=== PATIENT | female | born 1990 | race African-American/Black ===

== ENCOUNTER 2017-10-02 11:15 | Outpatient (CLI) | payer BC, MEDICAID ==
[2017-10-02 12:00] LABS: APPEARANCE,URINE SLIGHTLY-CLOUDY; BILIRUBIN,URINE NEGATIVE (NEGATIVE); GLUCOSE, URINE >=500 mg/dL (NEGATIVE); KETONES,URINE 80 mg/dL (NEGATIVE); LEUKOCYTE ESTERASE,URINE MODERATE (NEGATIVE); NITRITE,URINE NEGATIVE (NEGATIVE); PROTEIN,URINE NEGATIVE (NEGATIVE); URINE SPECIFIC GRAVITY 1.041; UROBILINOGEN,URINE NEGATIVE mg/dL (<2.0)
[2017-10-02 12:27] LABS: URINE BARBITURATES SCREEN NEGATIVE; URINE METHADONE SCREEN NEGATIVE; URINE OPIATES LOW NEGATIVE; URINE PHENCYCLIDINE SCREEN NEGATIVE
== END 2017-10-02 13:01 | disposition home or self-care (01) ==
LOC: LC 11:15
PROVIDERS: ATTEND Obstetrics & Gynecology
PROC: 4A1HXCZ Monitoring of Products of Conception, Cardiac Rate, External Approach (ICD-10-PCS; principal; 2017-10-02)
DX: O46.92 Antepartum hemorrhage, unspecified, second trimester (principal); O34.211 Maternal care for low transverse scar from previous cesarean delivery; Z3A.00 Weeks of gestation of pregnancy not specified
CPT/HCPCS: 80307; 81001; 87086

== ENCOUNTER 2017-10-27 09:49 | Emergency (ER) | payer BC, MEDICAID ==
[2017-10-27] MEDS ORDERED: NORMAL SALINE 1000 ML 1,000 ML IV ONE ×2 (09:59→11:40)
--- NOTE | 2017-10-27 10:01 | ER Document Report ---
ED Medical Screen (RME) - General Chief Complaint: High Blood Sugar Stated Complaint: BLOOD SUGAR CONCERNS Time Seen by Provider: 10/27/17 09:59 Notes: Patient is sent from the [facility] for elevated blood sugar. She states she has been weak lightheaded and dizzy. At clinic her blood sugar was 328. She states that she has not been treated for elevated glucose during this . This was her first elevated glucose reading. She states she is approximately 32 weeks gestation. TRAVEL OUTSIDE OF THE [place] IN LAST 30 DAYS: No - Related Data Allergies/Adverse Reactions: No Known Allergies Allergy (Verified 10/02/17 11:37) Past Medical History - Social History Chew tobacco use (# tins/day): No Frequency of alcohol use: None Drug Abuse: None Renal/ Medical History: Denies: Hx Peritoneal Dialysis Physical Exam - Vital signs Vitals: Temp Pulse Resp BP Pulse Ox 97.8 F 104 H 20 133/69 H 98 10/27/17 09:53 10/27/17 09:53 10/27/17 09:53 10/27/17 09:53 10/27/17 09:53 Course - Vital Signs Vital signs: Temp Pulse Resp BP Pulse Ox 97.8 F 104 H 20 133/69 H 98 10/27/17 09:53 10/27/17 09:53 10/27/17 09:53 10/27/17 09:53 10/27/17 09:53
[2017-10-27 10:45] LABS: ABSOLUTE BASOPHILS # (AUTO) 0.1 10^3/uL (0.0-0.2); ABSOLUTE LYMPHOCYTES (AUTO) 2.1 10^3/uL (0.5-4.7); ABSOLUTE MONOCYTES (AUTO) 0.7 10^3/uL (0.1-1.4); ABSOLUTE NEUT (AUTO) 7.8 10^3/uL (1.7-8.2); BASOPHILS % (AUTO) 0.6 % (0-2); EOSINOPHILS % (AUTO) 0.3 % (0-6); HEMATOCRIT 43.8 % (36.0-47.0); HEMOGLOBIN 14.4 g/dL (12.0-15.5); LYMPHOCYTES % (AUTO) 19.1 % (13-45); MEAN CORPUSCULAR HEMOGLOBIN 31.5 pg (27.0-33.4); MEAN CORPUSCULAR HGB CONC 32.8 g/dL (32.0-36.0); MEAN CORPUSCULAR VOLUME 96 fl (80-97); MONOCYTES % (AUTO) 6.9 % (3-13); PLATELET COUNT 287 10^3/uL (150-450); RED BLOOD COUNT 4.55 10^6/uL (3.72-5.28); RED CELL DISTRIBUTION WIDTH 14.7 % (11.5-14.0); SEGMENTED NEUTROPHILS % (AUTO) 73.1 % (42-78); TOTAL CELLS COUNTED % (AUTO) 100 %; WHITE BLOOD COUNT 10.7 10^3/uL (4.0-10.5)
[2017-10-27 10:47] LABS: APPEARANCE,URINE SLIGHTLY-CLOUDY; BILIRUBIN,URINE NEGATIVE (NEGATIVE); COLOR,URINE YELLOW; GLUCOSE, URINE >=500 mg/dL (NEGATIVE); KETONES,URINE 80 mg/dL (NEGATIVE); LEUKOCYTE ESTERASE,URINE NEGATIVE (NEGATIVE); NITRITE,URINE NEGATIVE (NEGATIVE); PROTEIN,URINE 100 mg/dL (NEGATIVE); URINE SPECIFIC GRAVITY 1.031; UROBILINOGEN,URINE NEGATIVE mg/dL (<2.0)
--- NOTE | 2017-10-27 12:07 | ER Document Report ---
ED Blood Sugar Problem - General Chief Complaint: High Blood Sugar Stated Complaint: BLOOD SUGAR CONCERNS Time Seen by Provider: 10/27/17 09:59 Mode of Arrival: Ambulatory Information source: Patient Notes: Patient is currently 32 weeks and reports that she was seen by her PROJECT MANAGEMENT this afternoon and told she had an elevated blood sugar. Patient states that she does occasionally feel lightheaded and dizzy. Patient states she has had some cold symptoms for the past week and a half. Patient denies any cough or fever. Patient denies any vaginal bleeding or discharge. Patient does report positive movement. Patient denies any urinary complaints. Patient states she has not had any consistent care with this due to lack of insurance and multiple moves recently. Patient is only previously seen the PROJECT MANAGEMENT doctor today and on one prior occasion. TRAVEL OUTSIDE OF THE [place] IN LAST 30 DAYS: No - HPI Onset: Just prior to arrival Onset/Duration: Gradual Quality of pain: No pain Pain Level: Denies Associated symptoms: Dizziness, Increased thirst, Frequent urination. denies: Loss of consciousness, Vomiting Similar symptoms previously: No Recently seen / treated by doctor: Yes - Related Data Allergies/Adverse Reactions: No Known Allergies Allergy (Verified 10/02/17 11:37) Past Medical History - General Information source: Patient Last Menstrual Period: 32 weeks - Social History Smoking Status: Never Smoker Chew tobacco use (# tins/day): No Frequency of alcohol use: None Drug Abuse: None Occupation: [employer] Lives with: Family Family History: Reviewed & Not Pertinent Patient has suicidal ideation: No Patient has homicidal ideation: No - Medical History Medical History: Negative Renal/ Medical History: Denies: Hx Peritoneal Dialysis Past Surgical History: Reports: Hx Section Review of Systems - Review of Systems Constitutional: Recent illness - cold symptoms. denies: Fever EENT: Nose congestion Cardiovascular: Dizziness, Lightheaded. denies: Chest pain Respiratory: No symptoms reported. denies: Cough, Short of breath Gastrointestinal: No symptoms reported. denies: Abdominal pain, Nausea, Vomiting Genitourinary: Frequency Female Genitourinary: No symptoms reported, Musculoskeletal: No symptoms reported Skin: No symptoms reported Hematologic/Lymphatic: No symptoms reported Neurological/Psychological: No symptoms reported. denies: Headaches Physical Exam - Vital signs Vitals: Temp Pulse Resp BP Pulse Ox 97.8 F 104 H 20 133/69 H 98 01/03/18 09:53 10/27/17 09:53 10/27/17 09:53 10/27/17 09:53 10/27/17 09:53 - General General appearance: Appears well, Alert In distress: None - HEENT Head: Normocephalic, Atraumatic Eyes: Normal Conjunctiva: Normal Nasal: Normal Mouth/Lips: Normal Mucous membranes: Dry Pharynx: Normal Neck: Normal, Supple. No: Lymphadenopathy - Respiratory Respiratory status: No respiratory distress Chest status: Nontender Breath sounds: Normal. No: Rales, Rhonchi, Stridor, Wheezing Chest palpation: Normal - Cardiovascular Rhythm: Regular Heart sounds: S1 appreciated, S2 appreciated Murmur: No - Abdominal Inspection: Gravid female Distension: No distension Bowel sounds: Normal Tenderness: Nontender Organomegaly: No organomegaly - Back Back: Normal, Nontender. No: CVA tenderness - Extremities General upper extremity: Normal inspection, Normal ROM General lower extremity: Normal inspection, Normal ROM. No: Edema - Neurological Neuro grossly intact: Yes Cognition: Normal [place] Coma Scale Eye Opening: Spontaneous [place] Coma Scale Verbal: Oriented [place] Coma Scale Motor: Obeys Commands [place] Coma Scale Total: 15 - Psychological Associated symptoms: Normal affect, Normal mood - Skin Skin Temperature: Warm Skin Moisture: Dry Skin Color: Normal Course - Re-evaluation Re-evalutation: 10/27/17 13:04 Patient reports that she is feeling much better after IV fluids. Consulted with Dr. Black regarding patient presentation, reviewed patient's diagnostic test results. Advises consultation with PROJECT MANAGEMENT provider. Consulted with Dr. Coyle who states that patient was only sent here for fluids and insulin as I do not have insulin in the office. Dr. Coyle states that patient had a prescription for glyburide 5 mg twice a day E scribed to the pharmacy already and that she should just take this to manage her diabetes and to follow-up in the office on Wednesday as planned. - Vital Signs Vital signs: Temp Pulse Resp BP Pulse Ox 97.8 F 94 17 134/81 H 99 10/27/17 09:53 10/27/17 13:23 10/27/17 13:23 10/27/17 13:23 10/27/17 13:23 - Laboratory Result Diagrams: 10/27/17 10:30 10/27/17 11:52 Laboratory results interpreted by me: 10/27/17 10/27/17 10/27/17 09:55 10:30 10:30 WBC 10.7 H RDW 14.7 H Sodium Potassium Chloride Carbon Dioxide Glucose POC Glucose 327 H Total Protein Albumin Urine Protein 100 H Urine Glucose (UA) >=500 H Urine Ketones 80 H 10/27/17 11:52 WBC RDW Sodium 134.4 L Potassium 5.2 H Chloride 108 H Carbon Dioxide 12 L Glucose 282 H POC Glucose Total Protein 6.2 L Albumin 3.3 L Urine Protein Urine Glucose (UA) Urine Ketones 10/27/17 13:05 Labs- Entire Visit 10/27/17 10/27/17 10/27/17 09:55 10:30 10:30 WBC 10.7 H RBC 4.55 Hgb 14.4 Hct 43.8 MCV 96 MCH 31.5 MCHC 32.8 RDW 14.7 H Plt Count 287 Seg Neutrophils % 73.1 Lymphocytes % 19.1 Monocytes % 6.9 Eosinophils % 0.3 Basophils % 0.6 Absolute Neutrophils 7.8 Absolute Lymphocytes 2.1 Absolute Monocytes 0.7 Absolute Eosinophils 0.0 Absolute Basophils 0.1 Sodium Cancelled Potassium Cancelled Chloride Cancelled Carbon Dioxide Cancelled Anion Gap Cancelled BUN Cancelled Creatinine Cancelled Est GFR ( Amer) Cancelled Est GFR (Non-Af Amer) Cancelled Glucose Cancelled POC Glucose 327 H Calcium Cancelled Total Bilirubin Cancelled Direct Bilirubin Cancelled Neonat Total Bilirubin Cancelled Neonat Direct Bilirubin Cancelled Neonat Indirect Bili Cancelled AST Cancelled ALT Cancelled Alkaline Phosphatase Cancelled Total Protein Cancelled Albumin Cancelled Urine Color Urine Appearance Urine pH Ur Specific [place] Urine Protein Urine Glucose (UA) Urine Ketones Urine Blood Urine Nitrite Urine Bilirubin Urine Urobilinogen Ur Leukocyte Esterase Urine WBC (Auto) Urine RBC (Auto) U Hyaline Cast (Auto) Urine Bacteria (Auto) Squamous Epi Cells Auto Urine Mucus (Auto) Urine Ascorbic Acid 10/27/17 10/27/17 10:30 11:52 WBC RBC Hgb Hct MCV MCH MCHC RDW Plt Count Seg Neutrophils % Lymphocytes % Monocytes % Eosinophils % Basophils % Absolute Neutrophils Absolute Lymphocytes Absolute Monocytes Absolute Eosinophils Absolute Basophils Sodium 134.4 L Potassium 5.2 H Chloride 108 H Carbon Dioxide 12 L Anion Gap 14 BUN 12 Creatinine 0.73 Est GFR ( Amer) > 60 Est GFR (Non-Af Amer) > 60 Glucose 282 H POC Glucose Calcium 9.1 Total Bilirubin 0.6 Direct Bilirubin 0.3 Neonat Total Bilirubin Not Reportable Neonat Direct Bilirubin Not Reportable Neonat Indirect Bili Not Reportable AST 15 ALT 27 Alkaline Phosphatase 118 Total Protein 6.2 L Albumin 3.3 L Urine Color YELLOW Urine Appearance SLIGHTLY-CLOUDY Urine pH 5.0 Ur Specific [place] 1.031 Urine Protein 100 H Urine Glucose (UA) >=500 H Urine Ketones 80 H Urine Blood NEGATIVE Urine Nitrite NEGATIVE Urine Bilirubin NEGATIVE Urine Urobilinogen NEGATIVE Ur Leukocyte Esterase NEGATIVE Urine WBC (Auto) 5 Urine RBC (Auto) 1 U Hyaline Cast (Auto) 1 Urine Bacteria (Auto) TRACE Squamous Epi Cells Auto 2 Urine Mucus (Auto) RARE Urine Ascorbic Acid NEGATIVE Discharge - Discharge Clinical Impression: Diabetes Qualifiers: Diabetes mellitus type: type 2 Diabetes mellitus complication status: with hyperglycemia Diabetes mellitus rodent exterminator insulin use: without shelter use Qualified Code(s): E11.65 - Type 2 diabetes mellitus with hyperglycemia Condition: Stable Disposition: HOME, SELF-CARE Instructions: Diabetes ([facility]), Intravenous (IV) Fluids ([facility]) Additional Instructions: Return immediately for any new or worsening symptoms Followup with your primary care provider, call tomorrow to make a followup appointment Get the oral diabetic medication filled as prescribed and take as directed. Your potassium was minimally elevated today, your primary doctor can recheck this in the office when you see them. Check your blood sugar daily. It is important that you maintain a diabetic diet. Review the handout provided by your commercial cleaner provider. Forms: Return to Work Referrals: ROMAN COLE MD [Primary Care Provider] - 10/29/17
[2017-10-27 12:25] LABS: ALANINE AMINOTRANSFERASE 27 U/L (9-52); ALBUMIN 3.3 g/dL (3.5-5.0); ALKALINE PHOSPHATASE 118 U/L (38-126); ANION GAP 14 (5-19); ASPARTATE AMINO TRANSFERASE 15 U/L (14-36); BILIRUBIN,DIRECT 0.3 mg/dL (0.0-0.4); BILIRUBIN,TOTAL 0.6 mg/dL (0.2-1.3); BLOOD UREA NITROGEN 12 mg/dL (7-20); CALCIUM 9.1 mg/dL (8.4-10.2); CARBON DIOXIDE 12 mmol/L (22-30); CHLORIDE 108 mmol/L (98-107); GLUCOSE 282 mg/dL (75-110); POTASSIUM 5.2 mmol/L (3.6-5.0); SODIUM 134.4 mmol/L (137-145); TOTAL PROTEIN 6.2 g/dL (6.3-8.2)
[2017-10-27] MEDS ORDERED: INSULIN REG, HUMAN 100 UNIT/ML 3 ML VIAL (PYX) SUBCUT ONE (12:55)
[2017-10-27 13:28] VITALS: BP 134/81
== END 2017-10-27 13:27 | disposition home or self-care (01) ==
LOC: ER 09:49
DX: O24.913 Unspecified diabetes mellitus in pregnancy, third trimester (principal); R42 Dizziness and giddiness; Z3A.32 32 weeks gestation of pregnancy; Z79.4 Long term (current) use of insulin
CPT/HCPCS: 99285; 96360; 96361; 36415; 82962; 85025; 80053; 81001; J1815; J7030

== ENCOUNTER 2017-11-02 11:47 | Inpatient (IN) | payer BC, MEDICAID ==
[2017-11-02 12:23] LABS: APPEARANCE,URINE CLEAR; BILIRUBIN,URINE NEGATIVE (NEGATIVE); COLOR,URINE YELLOW; GLUCOSE, URINE >=500 mg/dL (NEGATIVE); KETONES,URINE 80 mg/dL (NEGATIVE); LEUKOCYTE ESTERASE,URINE NEGATIVE (NEGATIVE); NITRITE,URINE NEGATIVE (NEGATIVE); PROTEIN,URINE 30 mg/dL (NEGATIVE); URINE SPECIFIC GRAVITY 1.017; UROBILINOGEN,URINE NEGATIVE mg/dL (<2.0)
[2017-11-02] MEDS ORDERED: INSULIN REG, HUMAN 100 UNIT/ML 3 ML VIAL (PYX) SUBCUT ONE (12:34)
[2017-11-02] MEDS ORDERED: INSULIN REG, HUMAN 100 UNIT/ML 3 ML VIAL (PYX) ONE (12:41)
[2017-11-02 12:43] LABS: URINE AMPHETAMINES SCREEN NEGATIVE; URINE BARBITURATES SCREEN NEGATIVE; URINE BENZODIAZEPINES SCREEN NEGATIVE; URINE COCAINE SCREEN NEGATIVE; URINE MARIJUANA (THC) SCREEN NEGATIVE; URINE METHADONE SCREEN NEGATIVE; URINE PHENCYCLIDINE SCREEN NEGATIVE
[2017-11-02 13:26] LABS: ABSOLUTE BASOPHILS # (AUTO) 0.1 10^3/uL (0.0-0.2); ABSOLUTE LYMPHOCYTES (AUTO) 1.5 10^3/uL (0.5-4.7); ABSOLUTE MONOCYTES (AUTO) 0.9 10^3/uL (0.1-1.4); ABSOLUTE NEUT (AUTO) 6.2 10^3/uL (1.7-8.2); BASOPHILS % (AUTO) 0.6 % (0-2); EOSINOPHILS % (AUTO) 0.4 % (0-6); HEMATOCRIT 37.6 % (36.0-47.0); HEMOGLOBIN 12.6 g/dL (12.0-15.5); LYMPHOCYTES % (AUTO) 17.7 % (13-45); MEAN CORPUSCULAR HEMOGLOBIN 31.6 pg (27.0-33.4); MEAN CORPUSCULAR HGB CONC 33.4 g/dL (32.0-36.0); MEAN CORPUSCULAR VOLUME 95 fl (80-97); MONOCYTES % (AUTO) 10.8 % (3-13); PLATELET COUNT 212 10^3/uL (150-450); RED BLOOD COUNT 3.97 10^6/uL (3.72-5.28); RED CELL DISTRIBUTION WIDTH 14.7 % (11.5-14.0); SEGMENTED NEUTROPHILS % (AUTO) 70.5 % (42-78); TOTAL CELLS COUNTED % (AUTO) 100 %; WHITE BLOOD COUNT 8.7 10^3/uL (4.0-10.5)
[2017-11-02 13:47] LABS: ALANINE AMINOTRANSFERASE 60 U/L (9-52); ALKALINE PHOSPHATASE 108 U/L (38-126); ANION GAP 14 (5-19); ASPARTATE AMINO TRANSFERASE 27 U/L (14-36); BILIRUBIN,DIRECT 0.3 mg/dL (0.0-0.4); BILIRUBIN,TOTAL 0.4 mg/dL (0.2-1.3); BLOOD UREA NITROGEN 12 mg/dL (7-20); CALCIUM 9.2 mg/dL (8.4-10.2); CARBON DIOXIDE 12 mmol/L (22-30); CHLORIDE 104 mmol/L (98-107); GLUCOSE 222 mg/dL (75-110); POTASSIUM 3.9 mmol/L (3.6-5.0); SODIUM 130.4 mmol/L (137-145); TOTAL PROTEIN 5.7 g/dL (6.3-8.2)
[2017-11-02] MEDS ORDERED: INSULIN REG, HUMAN 100 UNIT/ML 3 ML VIAL (PYX) SUBCUT SCH (16:00)
[2017-11-02] MEDS ORDERED: INSULIN NPH (ISOPHANE), HUMAN 100 UNIT/ML 3 ML SUBCUT SCH (16:00)
[2017-11-03] MEDS ORDERED: INSULIN NPH (ISOPHANE), HUMAN 100 UNIT/ML 3 ML SUBCUT SCH ×3 (08:00→22:00)
[2017-11-03] MEDS ORDERED: INSULIN REG, HUMAN 100 UNIT/ML 3 ML VIAL (PYX) SUBCUT SCH ×5 (08:00→17:00)
[2017-11-03] MEDS: PRENATAL VITAMIN W DHA CAPSULE PO SCH (09:31)
[2017-11-03] MEDS ORDERED: DEXTROSE 50%-WATER SYRINGE 25 GM/50 ML DOSE IV PRN (12:58)
[2017-11-03] MEDS ORDERED: DEXTROSE 40% GEL 15 GM TUBE PO PRN (12:58)
[2017-11-03] MEDS ORDERED: DEXTROSE 40% GEL 15 GM TUBE X 2 PO PRN (12:58)
[2017-11-03] MEDS ORDERED: GLUCAGON,HUMAN RECOMB 1 MG INJ IM PRN (12:58)
[2017-11-03] MEDS ORDERED: DEXTROSE 50%-WATER SYRINGE 12.5 GM/25 ML DOSE IV PRN (12:58)
[2017-11-03] MEDS ORDERED: INSULIN REG, HUMAN 100 UNIT/ML 3 ML VIAL (PYX) SUBCUT ONE (14:30)
[2017-11-03] MEDS ORDERED: INSULIN REG, HUMAN 100 UNIT/ML 3 ML VIAL (PYX) SUBCUT PRN (16:00)
[2017-11-03] MEDS: INSULIN REG, HUMAN 100 UNIT/ML 3 ML VIAL (PYX) SUBCUT PRN ×2 (16:16→22:00)
--- NOTE | 2017-11-03 17:02 | PDOC PROGRESS REPORT ---
Subjective Progress Note for:: 11/03/17 Subjective:: Pt. reports to have been feeling dizzy on and off when first diagnosed. Doing well today. Reports +FM, denies LOF/bleeding/ctx. Has multiple questions about diabetic diet and plan of care. Reports she had stopped eating carbs altogether since diagnosis and is frustrated that no matter what she is doing or what medications she takes or is given her glucose is still high. Reason For Visit: DIABETES IN Physical Exam - Physical Exam Vital Signs: Temp Pulse Resp BP Pulse Ox 97.5 F 90 18 120/74 100 11/03/17 07:51 11/03/17 07:51 11/03/17 07:51 11/03/17 07:51 11/03/17 07:51 Intake & Output 11/02/17 11/03/17 11/04/17 06:59 06:59 06:59 Intake Total 400 480 Balance 400 480 Weight 124.2 kg General appearance: PRESENT: no acute distress Psychiatric exam: PRESENT: appropriate affect Additional comments: VSS, afebrile, gravid abdomen. Result Laboratory Results: 11/02/17 13:17 11/02/17 13:17 Impressions: hgb A1c 8.6 Assessment & Plan - Diagnosis (1) Gestational diabetes mellitus (GDM) affecting second Is this a current diagnosis for this admission?: Yes Plan: had long discussion with patient and reviewed GDM diet and plan of care. Pt. asked questions and verbalized understanding. Will stay inpatient until glucose well controlled on insulin. Dr. Coyle in unit and managing glucose.
[2017-11-03] MEDS: MICONAZOLE NITRATE 2% VAGINAL CREAM 45 GM TUBE PV SCH (22:01)
[2017-11-04] MEDS ORDERED: INSULIN NPH (ISOPHANE), HUMAN 100 UNIT/ML 3 ML SUBCUT SCH ×2 (08:00→16:00)
[2017-11-04] MEDS ORDERED: DEXTROSE 50%-WATER 25 GM/50 ML DISP.SYRIN IV PRN ×6 (08:46→08:51)
[2017-11-04] MEDS ORDERED: GLUCAGON,HUMAN RECOMB 1 MG INJ IM PRN ×3 (08:46→08:51)
[2017-11-04] MEDS ORDERED: DEXTROSE 40% GEL 15 GM TUBE PO PRN ×6 (08:46→08:51)
[2017-11-04] MEDS ORDERED: INSULIN REG, HUMAN 100 UNIT/ML 3 ML VIAL (PYX) ONE (09:10)
[2017-11-04] MEDS ORDERED: INSULIN NPH (ISOPHANE), HUMAN 100 UNIT/ML 3 ML ONE (09:11)
[2017-11-04] MEDS ORDERED: INSULIN REG, HUMAN 100 UNIT/ML 3 ML VIAL (PYX) SUBCUT ONE (10:00)
[2017-11-04] MEDS ORDERED: INSULIN NPH (ISOPHANE), HUMAN 100 UNIT/ML 3 ML SUBCUT ONE (10:00)
--- NOTE | 2017-11-04 11:10 | PDOC PROGRESS REPORT ---
Subjective Progress Note for:: 11/04/17 Subjective:: pt alert and stable without complaints Reason For Visit: DIABETES IN Physical Exam - Physical Exam Vital Signs: Temp Pulse Resp BP Pulse Ox 97.5 F 91 16 107/54 L 100 11/04/17 08:10 11/04/17 08:10 11/04/17 08:10 11/04/17 08:10 11/04/17 08:10 Intake & Output 11/03/17 11/04/17 11/05/17 06:59 06:59 06:59 Intake Total 400 480 Balance 400 480 Weight 124.2 kg General appearance: PRESENT: no acute distress Neurological exam: PRESENT: alert Result Laboratory Results: 11/02/17 13:17 11/02/17 13:17 Assessment & Plan - Diagnosis (1) Gestational diabetes mellitus (GDM) affecting second Is this a current diagnosis for this admission?: Yes - Time Time Spent with patient: Less than 15 minutes Anticipated discharge: Home Within: within 48 hours - Plan Summary Plan Summary: continue to adjust insulin and plan d/c when goals met
[2017-11-04] MEDS: PRENATAL VITAMIN W DHA CAPSULE PO SCH (11:13)
[2017-11-04] MEDS: INSULIN REG, HUMAN 100 UNIT/ML 3 ML VIAL (PYX) SUBCUT PRN ×3 (13:30→20:06)
[2017-11-04] MEDS ORDERED: INSULIN REG, HUMAN 100 UNIT/ML 3 ML VIAL (PYX) SUBCUT SCH (16:00)
[2017-11-04] MEDS: MICONAZOLE NITRATE 2% VAGINAL CREAM 45 GM TUBE PV SCH (22:33)
[2017-11-05] MEDS ORDERED: INSULIN NPH (ISOPHANE), HUMAN 100 UNIT/ML 3 ML SUBCUT SCH (08:00)
[2017-11-05] MEDS ORDERED: INSULIN REG, HUMAN 100 UNIT/ML 3 ML VIAL (PYX) SUBCUT SCH (08:00)
[2017-11-05] MEDS: PRENATAL VITAMIN W DHA CAPSULE PO SCH (10:59)
--- NOTE | 2017-11-05 11:48 | Progress Note ---
Provider Note Provider Note: S:Pt states readiness for d/c. Has been administering own insulin and is able to verbalize s/sx hyper/hypoglycemia and when to seek care, states active baby denies vb, or lof, denies ctx. O: VSS, afebrile See flow sheet for blood glucose levels NST: Cat 1 A: IUP at 33w New dx GDM on insulin with improved glucose control P: c/w dr. prince Pt to be d/c home today with in office f/u for nst/[place] on wed or Insulin: Regular B-15 units, Dinner 8 units NPH: B-25 units, Dinner 12 units PTL prec. fm counts
[2017-11-05] MEDS: INSULIN REG, HUMAN 100 UNIT/ML 3 ML VIAL (PYX) SUBCUT PRN (12:10)
[2017-11-05 13:08] VITALS: BP 127/60
--- NOTE | 2017-11-05 13:29 | PDOC DISCHARGE SUMMARY ---
General - Admit/Disc Date/PCP Admission Date/Primary Care Provider: 11/02/17 14:40 ROMAN COLE MD Discharge Date: 11/05/17 - Discharge Diagnosis (1) Gestational diabetes mellitus (GDM) affecting second Is this a current diagnosis for this admission?: Yes Summary: pt started on insulin d/c insulin breakfast 15 units regular and 25 units nph, dinner 8 units regular , 12 units nph pt to follow up in office wednesday or wednesday - Additional Information Discharge Diet: Diabetic Discharge Activity: Activity As Tolerated Prescriptions: Insulin Regular, Human [Humulin R (Reg) Insulin 100 unit/mL] 15 unit SUBCUT ACBRKFST #300 unit Insulin Regular, Human [Humulin R (Reg) Insulin 100 unit/mL] 8 unit SUBCUT ACSUPPER #300 unit NPH, Human Insulin Isophane [Humulin N (NPH) Insulin 100 unit/mL] 25 unit SUBCUT ACBRKFST #300 unit NPH, Human Insulin Isophane [Humulin N (NPH) Insulin 100 unit/mL] 12 unit SUBCUT ACSUPPER #300 unit Home Medications: Vit,Calc76/Iron/Folic [Pnv 29-1 Tablet] 1 tab PO DAILY 10/02/17 Insulin Regular, Human [Humulin R (Reg) Insulin 100 unit/mL] 8 unit SUBCUT ACSUPPER #300 unit 11/05/17 Insulin Regular, Human [Humulin R (Reg) Insulin 100 unit/mL] 15 unit SUBCUT ACBRKFST #300 unit 11/05/17 NPH, Human Insulin Isophane [Humulin N (NPH) Insulin 100 unit/mL] 12 unit SUBCUT ACSUPPER #300 unit 11/05/17 NPH, Human Insulin Isophane [Humulin N (NPH) Insulin 100 unit/mL] 25 unit SUBCUT ACBRKFST #300 unit 11/05/17 History of Present Illness Patient complains of: pt sent for insulin initiation and blood sugar regulation History of Present Illness: JOSE TAMEZ is a 27 year old female Physical Exam - Physical Exam Vital Signs: Temp Pulse Resp BP Pulse Ox 97.5 F 84 16 127/60 H 99 11/05/17 13:05 11/05/17 13:05 11/05/17 13:05 11/05/17 13:05 11/05/17 13:05 Intake & Output 11/04/17 11/05/17 11/06/17 06:59 06:59 06:59 Intake Total 480 1240 600 Balance 480 1240 600 General appearance: PRESENT: no acute distress Rectal exam: PRESENT: deferred Musculoskeletal exam: PRESENT: ambulatory Neurological exam: PRESENT: alert, oriented to person, oriented to place, oriented to time Additional comments: gravid - Obstetrical Exam Tender: No Result Laboratory Results: 11/02/17 13:17 11/02/17 13:17 Plan Discharge Plan: d/c home on insulin as above f/u in office mon or tues for nst ptl prec, fm counts, reviewed s/sx hyper/hypoglycemia Time Spent: Less than 30 Minutes
--- NOTE | 2017-11-11 08:46 | Admission Physical ---
Datetime Report Generated by CPN: 11/11/2017 08:45 CURRENT ADMISSION Chief Complaint: Other Chief Complaint Other: Elevated blood sugar Indication for Induction: Not Applicable Admit Plan: Admit to Unit Admit Plan- Other: Begin insulin ALLERGIES Medication Allergies: No Medication Allergies: No Known Allergies (10/02/2017) Latex: No Latex Allergies OBSTETRICAL HISTORY EDC: 12/20/2017 00:00 : 2 Para: 1 Term: 1 : 0 SAB: 0 IAB: 0 Ectopic: 0 Livin Cesareans: 1 VBACs: 0 Multiple Births: 0 Gestational Diabetes: No Rh Sensitization: No Incompetent Cervix: No MAURY: No Infertility: No ART Treatment: No Uterine Anomaly: No IUGR: No Hx Previous C/S: Yes Macrosomia: No Hx Loss/Stillborn: No PIH: No Hx : No Placenta Previa/Abruption: No Depression/PP Depression: No PTL/PROM: No Post Hemorrhage: No Current Procedures: Ultrasound Obstetrical History Comments: 08/2015 , true knot, 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 [id number] MEDICAL HISTORY Diabetes: No Blood Transfusion: No Pulmonary Disease (Asthma, TB): No Breast Disease: No Hypertension: No Chinese Medicine Practitioner Surgery: No Heart Disease: No Hosp/Surgery: Yes Autoimmune Disorder: No Anesthetic Complications: No Kidney Disease: No Abnormal Pap Smear: No Neuro/Epilepsy: No Psychiatric Disorders: No Other Medical Diseases: No Hepatitis/Liver Disease: No Significant Family History: No Varicosities/Phlebitis: No Trauma/Violence : No Thyroid Dysfunction: No INFECTIOUS HISTORY Gonorrhea: No Genital Herpes: No Chlamydia: No Tuberculosis: No Syphilis: No Hepatitis: No HIV/AIDS Exposure: No Rash or Viral Illness: No HPV: No PHYSICAL EXAM General: Normal HEENT: Normal Neurologic: Normal Thyroid: Normal Heart: Normal Lungs: Normal Breast: Deferred Back: Normal Abdomen: Normal Genitourinary Exam: Normal Extremities: Normal DTRs: Normal Pelvic Type: Adequate Vital Signs: Reviewed MEMBRANES Pooling: Negative Membranes: Intact FETUS A EGA: 33.1 FHR- Baseline: 140 FHR Category: Category I Admit Comment: Admit for insulin patterning PLANS FOR LABOR AND DELIVERY Labor and Delivery: Plan Pain Management: Epidural Feeding Preference: Breast Benefit of Breast Feed Discussed: Yes Circumcision: N/A INFORMED CONSENT Signature: with User ID: [email or web address]
== END 2017-11-05 14:20 | disposition home or self-care (01) | DRG 781 ==
LOC: LC 11:47 → LR 14:40 → 2S 16:15
PROVIDERS: ADMIT Obstetrics & Gynecology; ATTEND Obstetrics & Gynecology
PROC: 4A1HXCZ Monitoring of Products of Conception, Cardiac Rate, External Approach (ICD-10-PCS; principal; 2017-11-02)
DX: O24.410 Gestational diabetes mellitus in pregnancy, diet controlled (principal); O34.211 Maternal care for low transverse scar from previous cesarean delivery; Z3A.33 33 weeks gestation of pregnancy
CPT/HCPCS: 36415; 59025; 80053; 80307; 81001; 82962; 83036; 85025; J1815; J3490

== ENCOUNTER 2017-11-17 00:41 | Outpatient (CLI) | payer BC, MEDICAID ==
[2017-11-17] MEDS ORDERED: RINGERS SOLUTION,LACTATED 1,000 ML IV ONE (01:58)
[2017-11-17] MEDS ORDERED: RINGERS SOLUTION,LACTATED 1,000 ML IV PRN ×2 (01:58→14:09)
[2017-11-17 02:33] LABS: APPEARANCE,URINE CLOUDY; BILIRUBIN,URINE NEGATIVE (NEGATIVE); COLOR,URINE AMBER; GLUCOSE, URINE 50 mg/dL (NEGATIVE); KETONES,URINE 80 mg/dL (NEGATIVE); LEUKOCYTE ESTERASE,URINE NEGATIVE (NEGATIVE); NITRITE,URINE NEGATIVE (NEGATIVE); PROTEIN,URINE 100 mg/dL (NEGATIVE); URINE SPECIFIC GRAVITY 1.027; UROBILINOGEN,URINE NEGATIVE mg/dL (<2.0)
[2017-11-17 02:51] LABS: URINE AMPHETAMINES SCREEN NEGATIVE; URINE BARBITURATES SCREEN NEGATIVE; URINE BENZODIAZEPINES SCREEN NEGATIVE; URINE COCAINE SCREEN NEGATIVE; URINE MARIJUANA (THC) SCREEN NEGATIVE; URINE METHADONE SCREEN NEGATIVE; URINE PHENCYCLIDINE SCREEN NEGATIVE
--- NOTE | 2017-11-17 03:04 | Non Stress Test Report ---
Non Stress Test Datetime Report Generated by CPN: 11/17/2017 03:03 DEMOGRAPHIC EGA NST: 35.2 EGA NST: 33.1 INDICATION Indication for Study: Ordered by Provider Indication for Study: Diabetes Mellitus MONITORING Monitor Explained: Monitor Explained; Test Explained; Patient Verbalized Understanding Monitor Explained: Monitor Explained; Test Explained; Patient Verbalized Understanding Time on Monitor: 11/17/2017 01:15 Time on Monitor: 11/02/2017 12:05 Time off Monitor: 11/17/2017 02:00 Time off Monitor: 11/02/2017 13:45 NST Duration: 45 NST Duration: 100 NST INTERVENTIONS NST Interventions: PO Hydration; Reposition Patient NST Interventions: PO Hydration; Reposition Patient Physician Notified NST: Dr Raza Physician Notified NST: RAYMON Silva BABY A: [id number] BABY A Movement : Present Movement : Present Contraction Frequency : irregular Contraction Frequency : None FHR Baseline : 140 FHR Baseline : 140 Accelerations : 15X15 Accelerations : 15X15 Decelerations : None Decelerations : None Variability : Moderate 6-25bpm Variability : Moderate 6-25bpm NST Review: Meets Criteria for Reactive NST NST Review: Meets Criteria for Reactive NST NST Review and Verified By : RIKKI baker NST Review and Verified By : Jaziel Kennedy RN NST Results: Reactive NST Results: Reactive NST REPORT Report Trigger: Send Report
[2017-11-17] MEDS ORDERED: RINGERS SOLUTION,LACTATED 500 ML IV PRN (14:09)
== END 2017-11-17 03:26 | disposition home or self-care (01) ==
LOC: LC 00:41
PROVIDERS: ATTEND Obstetrics & Gynecology Gynecology
PROC: 4A1HXCZ Monitoring of Products of Conception, Cardiac Rate, External Approach (ICD-10-PCS; principal; 2017-11-17)
DX: O47.03 False labor before 37 completed weeks of gestation, third trimester (principal); O26.893 Other specified pregnancy related conditions, third trimester; E86.0 Dehydration; Z3A.35 35 weeks gestation of pregnancy
CPT/HCPCS: 59025; 80307; 81001

== ENCOUNTER 2017-11-23 16:49 | Outpatient (CLI) | payer BC, MEDICAID | END 2017-11-23 17:25 | disposition home or self-care (01) | LOC: LC 16:49 | PROVIDERS: ATTEND Obstetrics & Gynecology | PROC: 4A1HXCZ Monitoring of Products of Conception, Cardiac Rate, External Approach (ICD-10-PCS; principal; 2017-11-23) | DX: Z34.93 Encounter for supervision of normal pregnancy, unspecified, third trimester (principal); Z3A.36 36 weeks gestation of pregnancy | CPT/HCPCS: 59025 ==

== ENCOUNTER 2017-12-10 11:05 | Outpatient (CLI) | payer BC, MEDICAID ==
[2017-12-10] MEDS ORDERED: RINGERS SOLUTION,LACTATED 1,000 ML IV PRN (11:35)
[2017-12-10 11:38] LABS: APPEARANCE,URINE SLIGHTLY-CLOUDY; BILIRUBIN,URINE NEGATIVE (NEGATIVE); COLOR,URINE AMBER; GLUCOSE, URINE >=500 mg/dL (NEGATIVE); KETONES,URINE NEGATIVE (NEGATIVE); LEUKOCYTE ESTERASE,URINE NEGATIVE (NEGATIVE); NITRITE,URINE NEGATIVE (NEGATIVE); PROTEIN,URINE NEGATIVE (NEGATIVE); URINE SPECIFIC GRAVITY 1.022; UROBILINOGEN,URINE NEGATIVE mg/dL (<2.0)
[2017-12-10 11:50] LABS: URINE AMPHETAMINES SCREEN NEGATIVE; URINE BARBITURATES SCREEN NEGATIVE; URINE BENZODIAZEPINES SCREEN NEGATIVE; URINE COCAINE SCREEN NEGATIVE; URINE MARIJUANA (THC) SCREEN NEGATIVE; URINE METHADONE SCREEN NEGATIVE; URINE PHENCYCLIDINE SCREEN NEGATIVE
[2017-12-10 12:29] LABS: ABSOLUTE LYMPHOCYTES (AUTO) 1.8 10^3/uL (0.5-4.7); ABSOLUTE MONOCYTES (AUTO) 0.9 10^3/uL (0.1-1.4); ABSOLUTE NEUT (AUTO) 6.9 10^3/uL (1.7-8.2); BASOPHILS % (AUTO) 0.2 % (0-2); EOSINOPHILS % (AUTO) 0.5 % (0-6); HEMATOCRIT 31.8 % (36.0-47.0); HEMOGLOBIN 10.6 g/dL (12.0-15.5); MEAN CORPUSCULAR HEMOGLOBIN 31.1 pg (27.0-33.4); MEAN CORPUSCULAR HGB CONC 33.3 g/dL (32.0-36.0); MEAN CORPUSCULAR VOLUME 94 fl (80-97); MONOCYTES % (AUTO) 8.9 % (3-13); PLATELET COUNT 211 10^3/uL (150-450); RED CELL DISTRIBUTION WIDTH 15.3 % (11.5-14.0); SEGMENTED NEUTROPHILS % (AUTO) 71.4 % (42-78); TOTAL CELLS COUNTED % (AUTO) 100 %; WHITE BLOOD COUNT 9.6 10^3/uL (4.0-10.5)
[2017-12-10 12:44] LABS: ALANINE AMINOTRANSFERASE 26 U/L (9-52); ALBUMIN 2.6 g/dL (3.5-5.0); ALKALINE PHOSPHATASE 110 U/L (38-126); AMYLASE 53 U/L (30-110); ANION GAP 7 (5-19); ASPARTATE AMINO TRANSFERASE 12 U/L (14-36); BILIRUBIN,DIRECT 0.3 mg/dL (0.0-0.4); BILIRUBIN,TOTAL 0.4 mg/dL (0.2-1.3); BLOOD UREA NITROGEN 6 mg/dL (7-20); CARBON DIOXIDE 22 mmol/L (22-30); CHLORIDE 106 mmol/L (98-107); GLUCOSE 140 mg/dL (75-110); LIPASE 41.5 U/L (23-300); POTASSIUM 4.1 mmol/L (3.6-5.0); SODIUM 134.7 mmol/L (137-145); TOTAL PROTEIN 5.8 g/dL (6.3-8.2)
== END 2017-12-10 13:22 | disposition home or self-care (01) ==
LOC: LC 11:05
PROVIDERS: ATTEND Student in an Organized Health Care Education/Training Program
PROC: 4A1HXCZ Monitoring of Products of Conception, Cardiac Rate, External Approach (ICD-10-PCS; principal; 2017-12-10)
DX: O47.1 False labor at or after 37 completed weeks of gestation (principal); Z3A.38 38 weeks gestation of pregnancy
CPT/HCPCS: 36415; 59025; 80053; 80307; 81001; 82150; 83690; 85025

== ENCOUNTER 2018-11-17 12:14 | Emergency (ER) | payer BC, MEDICAID ==
[2018-11-17] MEDS ORDERED: NORMAL SALINE 1000 ML 1,000 ML IV ONE (13:17)
[2018-11-17 13:40] LABS: APPEARANCE,URINE CLEAR; BILIRUBIN,URINE NEGATIVE (NEGATIVE); COLOR,URINE COLORLESS; GLUCOSE, URINE >=500 mg/dL (NEGATIVE); KETONES,URINE TRACE mg/dL (NEGATIVE); LEUKOCYTE ESTERASE,URINE TRACE (NEGATIVE); NITRITE,URINE NEGATIVE (NEGATIVE); PROTEIN,URINE NEGATIVE (NEGATIVE); UROBILINOGEN,URINE NEGATIVE mg/dL (<2.0)
[2018-11-17 13:40] LABS: VENOUS BLOOD BASE EXCESS 2.1 mmol/L; VENOUS BLOOD HCO3 28.6 mmol/L (20-32); VENOUS BLOOD PCO2 51.9 mmHg (35-63); VENOUS BLOOD PH 7.36 (7.30-7.42)
[2018-11-17 13:52] LABS: ABSOLUTE BASOPHILS # (AUTO) 0.1 10^3/uL (0.0-0.2); ABSOLUTE EOSINOPHILS # (AUTO) 0.1 10^3/uL (0.0-0.6); ABSOLUTE LYMPHOCYTES (AUTO) 2.7 10^3/uL (0.5-4.7); ABSOLUTE MONOCYTES (AUTO) 0.5 10^3/uL (0.1-1.4); ABSOLUTE NEUT (AUTO) 4.4 10^3/uL (1.7-8.2); BASOPHILS % (AUTO) 0.7 % (0-2); HEMATOCRIT 44.9 % (36.0-47.0); LYMPHOCYTES % (AUTO) 34.9 % (13-45); MEAN CORPUSCULAR HEMOGLOBIN 30.7 pg (27.0-33.4); MEAN CORPUSCULAR HGB CONC 33.4 g/dL (32.0-36.0); MEAN CORPUSCULAR VOLUME 92 fl (80-97); MONOCYTES % (AUTO) 6.2 % (3-13); PLATELET COUNT 253 10^3/uL (150-450); RED BLOOD COUNT 4.88 10^6/uL (3.72-5.28); RED CELL DISTRIBUTION WIDTH 13.3 % (11.5-14.0); SEGMENTED NEUTROPHILS % (AUTO) 57.2 % (42-78); TOTAL CELLS COUNTED % (AUTO) 100 %; WHITE BLOOD COUNT 7.7 10^3/uL (4.0-10.5)
[2018-11-17 14:01] LABS: ALANINE AMINOTRANSFERASE 26 U/L (9-52); ALBUMIN 4.7 g/dL (3.5-5.0); ALKALINE PHOSPHATASE 139 U/L (38-126); ANION GAP 9 (5-19); ASPARTATE AMINO TRANSFERASE 30 U/L (14-36); BILIRUBIN,DIRECT 0.4 mg/dL (0.0-0.4); BILIRUBIN,TOTAL 0.6 mg/dL (0.2-1.3); BLOOD UREA NITROGEN 15 mg/dL (7-20); CALCIUM 9.7 mg/dL (8.4-10.2); CARBON DIOXIDE 29 mmol/L (22-30); CHLORIDE 96 mmol/L (98-107); POTASSIUM 4.8 mmol/L (3.6-5.0); SODIUM 134.1 mmol/L (137-145); TOTAL PROTEIN 8.2 g/dL (6.3-8.2)
[2018-11-17 14:13] LABS: GLUCOSE 531 mg/dL (75-110)
[2018-11-17] MEDS ORDERED: INSULIN REG, HUMAN 100 UNIT/ML 3 ML VIAL (PYX) IV ONE (14:37)
[2018-11-17] MEDS ORDERED: RINGERS SOLUTION,LACTATED 1,000 ML IV PRN (14:40)
--- NOTE | 2018-11-17 14:40 | ER Document Report ---
ED General - General Chief Complaint: High Blood Sugar Stated Complaint: BLOOD SUGAR ISSUE Time Seen by Provider: 11/17/18 13:21 Primary Care Provider: VALENTINA PIERSON MD [Primary Care Provider] - Follow up as needed TRAVEL OUTSIDE OF THE [place] IN LAST 30 DAYS: No - HPI Notes: 28-year-old female with type 2 diabetes who is insulin-dependent presents to the ED for evaluation of hyperglycemia with a blood sugar of 507 who was sent by primary care for evaluation. Patient states she has been forgetting to take her insulin in the last couple days because she is not stopped by the pharmacy to pick it up. Reports polyuria polydipsia polyphagia. Has not been adjusting her diet with consideration that she has diabetes. Denies fevers, chills, chest pain,palpitations, shortness of breath, dyspnea, nausea, vomiting, diarrhea, abdominal pain, hematuria,blurred vision, double vision, loss of vision, speech changes, LH, dizziness, syncope, headaches, wheezing, ST, URI, neck pain, weakness, bowel or bladder dysfunction, saddle anesthesia, numbness or tingling in bilateral upper or lower extremities equally, muscle paralysis, weakness in bilateral upper or lower extremities equally or rash. - Related Data Allergies/Adverse Reactions: No Known Allergies Allergy (Verified 12/10/17 12:06) Past Medical History - General Information source: Patient - Social History Smoking Status: Never Smoker Frequency of alcohol use: None Drug Abuse: None Family History: Reviewed & Not Pertinent Patient has suicidal ideation: No Patient has homicidal ideation: No Endocrine Medical History: Reports: Hx Diabetes Mellitus Type 2 Renal/ Medical History: Denies: Hx Peritoneal Dialysis Past Surgical History: Reports: Hx Section - x2 Review of Systems - Review of Systems Constitutional: See HPI EENT: No symptoms reported Cardiovascular: No symptoms reported Respiratory: No symptoms reported Gastrointestinal: No symptoms reported Genitourinary: No symptoms reported Female Genitourinary: No symptoms reported Musculoskeletal: No symptoms reported Skin: No symptoms reported Hematologic/Lymphatic: No symptoms reported Neurological/Psychological: No symptoms reported Physical Exam - Vital signs Vitals: Temp Pulse Resp BP Pulse Ox 98.0 F 76 16 135/81 H 96 11/17/18 12:29 11/17/18 12:29 11/17/18 12:29 11/17/18 12:11/17/18 12:29 - Notes Notes: PHYSICAL EXAMINATION: GENERAL: Well-appearing, well-nourished and in no acute distress. HEAD: Atraumatic, normocephalic. EYES: Pupils equal round and reactive to light, extraocular movements intact, conjunctiva are normal. ENT: Nares patent, oropharynx clear without exudates. Moist mucous membranes. NECK: Normal range of motion, supple without lymphadenopathy LUNGS: Breath sounds clear to auscultation bilaterally and equal. No wheezes rales or rhonchi. HEART: Regular rate and rhythm without murmurs ABDOMEN: Soft, nontender, nondistended abdomen. No guarding, no rebound. No masses appreciated. Female : deferred Musculoskeletal: Normal range of motion, no pitting or edema. No cyanosis. NEUROLOGICAL: Cranial nerves grossly intact. Normal speech, normal gait. Normal sensory, motor exams PSYCH: Normal mood, normal affect. SKIN: Warm, Dry, normal turgor, no rashes or lesions noted. Course - Re-evaluation Re-evalutation: 11/17/18 18:35 28-year-old female afebrile vitals stable no distress presents for hyperglycemia due to not taking her insulin on a sliding scale because she has did forget to go to the pharmacy initial blood sugar 529, patient given IV fluids 10 units of insulin, blood sugar has reduced down to 230s, CBC negative for leukocytosis or anemia, CMP negative for renal or hepatic dysfunction, electrolytes normal minus blood glucose level. Urinalysis does have some ketones with glucouria. After 2 bags of IV fluids 10 units of insulin. Presentation of asymptomatic hyperglycemia. There is no evidence of HHS or diabetic ketoacidosis on laboratories or based on clinical history. Patient's vitals are within normal limits. They deny any acute focal complaints. Treatment with insulin and IV fluids given here in the emergency department with appropriate response of the blood sugar. Patient does have primary care follow-up. Patient was instructed to continue taking their insulin and advised they will likely need to increase dietary modification and may also need medication changes. Patient does have i nsulin prescription and they state they will comply the pharmacy to [facility] prescriptions. Discussed with patient that she does need to follow-up with her primary care provider. Patient is not nauseated or able to hold down p.o. liquids discussed the patient that she does need to be diligent about taking her insulin on a daily basis following a low-carb diet and monitoring her blood sugars. Indications to return to emergency department as well as the importance of close outpatient follow-up were discussed at length. Patient verbalized understanding of the need for close follow-up and indications to return to the ED. patient states that she feels much better, is ready to go home - Vital Signs Vital signs: Temp Pulse Resp BP Pulse Ox 98.0 F 76 16 135/81 H 96 11/17/18 12:29 11/17/18 12:29 11/17/18 12:29 11/17/18 12:29 11/17/18 12:29 - Laboratory Result Diagrams: 11/17/18 13:21 11/17/18 13:21 Laboratory results interpreted by me: 11/17/18 11/17/18 11/17/18 12:25 13:21 15:23 Sodium 134.1 L Chloride 96 L Glucose 531 H* POC Glucose 292 H Alkaline Phosphatase 139 H Urine Glucose (UA) >=500 H Urine Ketones TRACE H Ur Leukocyte Esterase TRACE H Discharge - Discharge Clinical Impression: Hyperglycemia Condition: Stable Disposition: HOME, SELF-CARE Instructions: Hyperglycemia ([facility]) Additional Instructions: Return immediately for any new or worsening symptoms. Follow up with primary care provider, call tomorrow to make followup appointment. Forms: Return to Work Referrals: VALENTINA PIERSON MD [Primary Care Provider] - Follow up tomorrow RULA HAMILTON DO [NO LOCAL MD] - Follow up as needed
[2018-11-17 17:53] VITALS: BP 134/72
== END 2018-11-17 17:53 | disposition home or self-care (01) ==
LOC: ER 12:14
DX: E11.65 Type 2 diabetes mellitus with hyperglycemia (principal); R35.8 Other polyuria; R63.1 Polydipsia; R63.2 Polyphagia; Z79.4 Long term (current) use of insulin
CPT/HCPCS: 99283; 96360; 96361; 36415; 82962; 85025; 81025; 80053; 81001; 82803; J1815; J7030; J7120